=== PATIENT | female | born 1980 | race Caucasian/White ===

== ENCOUNTER → 2018-01-13 | Outpatient (CLI) | payer BC, SELFPAY ==
[~2018-01-13] MED LIST: THYR60
== END ==
LOC: LAB 12:18 → LAB SHORT 12:18
PROVIDERS: Obstetrics & Gynecology
DX: Z01.419 Encounter for gynecological examination (general) (routine) without abnormal findings (principal)
CPT/HCPCS: 87624; G0123

== ENCOUNTER → 2018-02-13 | Outpatient (CLI) | payer BC, SELFPAY ==
[2018-02-13 14:06] LABS: Free Thyroxine 1.01 ng/dL (0.70-1.60)
[2018-02-13 14:12] LABS: Thyroid Stimulating Hormone 2.56 uIU/mL (0.360-4.800); Triiodothyronine, Free 2.45 pg/mL (2.18-3.98)
== END ==
LOC: OLS 11:50 → LAB SHORT 11:50
PROVIDERS: Hospitalist
DX: E03.9 Hypothyroidism, unspecified (principal)
CPT/HCPCS: 84439; 84443; 84481

== ENCOUNTER → 2018-04-28 | Outpatient (CLI) | payer BC | END | disposition home or self-care (01) | LOC: PLD 12:24 → LAB SHORT 12:24 | DX: N87.9 Dysplasia of cervix uteri, unspecified (principal) | CPT/HCPCS: 88305 ==

== ENCOUNTER → 2018-08-25 | Outpatient (CLI) | payer BC ==
[2018-08-25 11:33] LABS: Source, Urine Clean Catch
[2018-08-25 12:26] LABS: Bilirubin, Urine Neg (Neg); Blood, Urine Neg (Neg); Glucose Qualitative, Urine Neg (Neg); Ketones, Urine Neg (Neg); Leukocyte Esterase, Urine Neg (Neg); Nitrite, Urine Neg (Neg); Protein, Urine Neg (Neg); Specific Gravity, Urine 1.015 (1.003-1.022); Urobilinogen, Urine NORM (Normal)
[2018-08-25 12:28] LABS: Appearance, Urine Clear (Clear); Color, Urine No Color (P-Yellow)
== END ==
LOC: LAB SHORT 11:32 → LAB 11:32 → LAB FUT 08-25 10:35 → EDSTATUS 08-25 10:35
PROVIDERS: Obstetrics & Gynecology
DX: R30.0 Dysuria (principal)
CPT/HCPCS: 81003

== ENCOUNTER → 2018-10-15 | Outpatient (CLI) | payer BC ==
[2018-10-15 14:51] LABS: Free Thyroxine 0.92 ng/dL (0.70-1.60)
[2018-10-15 14:54] LABS: Triiodothyronine, Free 2.74 pg/mL (2.18-3.98)
[2018-10-15 14:55] LABS: Thyroid Stimulating Hormone 1.94 uIU/mL (0.360-4.800)
== END | disposition home or self-care (01) ==
LOC: LAB SHORT 13:50 → LAB 13:50
PROVIDERS: Hospitalist
DX: E03.9 Hypothyroidism, unspecified (principal)
CPT/HCPCS: 84439; 84443; 84481